=== PATIENT | female | born 1985 | race Two or more races ===

== ENCOUNTER 2018-03-06 18:32 | Emergency (ER) | payer OTHER ==
[~2018-03-06] VITALS: Ht 170.2 cm; Wt 68.0 kg
[2018-03-06] MEDS ORDERED: YASMIN 28 TABL1 EACH (18:57)
== END 2018-03-06 19:35 | disposition home or self-care (01) ==
LOC: ER 18:32
DX: S13.4XXA Sprain of ligaments of cervical spine, initial encounter (principal); S30.0XXA Contusion of lower back and pelvis, initial encounter; M54.89 Other dorsalgia; V49.9XXA Car occupant (driver) (passenger) injured in unspecified traffic accident, initial encounter; Y93.89 Activity, other specified; Y92.488 Other paved roadways as the place of occurrence of the external cause; Y99.8 Other external cause status